=== PATIENT | female | born 1945 | race Caucasian/White ===

== ENCOUNTER → 2016-09-26 14:50 | Outpatient (CLI) | payer MEDICARE, OTHER ==
[2014-11-02 05:55] VITALS: BMI 26.5
[~2016-09-26 14:50] MED LIST: ASPIRIN EC81 M1 PO; CARDIZEM60 MG PO; SYNTHROID88 MCG PO
== END | disposition home or self-care (01) ==
LOC: D.MRI 09-25 13:00
DX: M25.511 Pain in right shoulder (principal)

== ENCOUNTER → 2017-11-02 13:39 | Outpatient (CLI) | payer MEDICARE, OTHER ==
[2014-11-02 05:55] VITALS: BMI 26.5
== END | disposition home or self-care (01) ==
LOC: D.RAD 13:39
DX: M25.512 Pain in left shoulder (principal)

== ENCOUNTER 2017-11-18 08:00 | Outpatient (CLI) | payer MEDICARE, OTHER ==
[~2017-11-18] VITALS: Ht 154.9 cm; Wt 68.0 kg
[~2017-11-18 08:00] MED LIST changes: +BETAPACE 120 M120 MG PO; +FOLIC ACID1 MG PO; +METHOTREXATE2.5 MG PO; +SYNTHROID50 MCG PO; -SYNTHROID88 MCG PO
[2017-11-18 08:25] LABS: HEMATOCRIT 36.5 % (36.0-48.0); HEMOGLOBIN 12.2 g/dL (12-16); MCHC 33.4 g/dL (31.0-37.0); MCV 95.8 fL (80.0-100.0); MEAN PLATELET VOLUME 10.1 fL (7.4-10.4); RBC 3.81 10x6/uL (4.00-5.40); RDW 13.1 % (11.5-14.5); WBC 6.7 10x3/uL (4.8-10.8)
[2017-11-19 08:36] VITALS: Ht 154.9 cm; Wt 68.0 kg
[2017-12-23] MEDS ORDERED: CORDARONE200 MG PO (08:45)
[2017-12-23] MEDS ORDERED: NORVASC5 MG PO (08:45)
== END 2017-11-18 10:10 | disposition home or self-care (01) ==
LOC: D.OPS 08:00 → D.PAN 11-19 10:15 → D.OPS 11-19 10:15 → EDSTATUS 11-19 10:15
PROVIDERS: Anesthesiology
DX: M75.100 Unspecified rotator cuff tear or rupture of unspecified shoulder, not specified as traumatic (principal); Z53.09 Procedure and treatment not carried out because of other contraindication; Z01.812 Encounter for preprocedural laboratory examination

== ENCOUNTER 2017-11-19 12:30 | Emergency (ER) | payer MEDICARE, OTHER ==
[2017-11-19 08:36] VITALS: BMI 28.4
[2017-11-19 14:34] LABS: BASOPHILS 0.7 % (0-2); EOSINOPHILS 1.9 % (0-7); HEMATOCRIT 38.9 % (36.0-48.0); HEMOGLOBIN 13.2 g/dL (12-16); IMMATURE GRANULOCYTES 0.1 % (0-5); LYMPHOCYTES 38.1 % (15-50); MCH 32.5 pg (26.0-34.0); MCHC 33.9 g/dL (31.0-37.0); MCV 95.8 fL (80.0-100.0); MEAN PLATELET VOLUME 10.2 fL (7.4-10.4); MONOCYTES 9.3 % (2-11); NEUTROPHILS 49.9 % (40-80); PLATELET COUNT 246 10x3/uL (130-400); RBC 4.06 10x6/uL (4.00-5.40); RDW 13.4 % (11.5-14.5); WBC 7.3 10x3/uL (4.8-10.8)
[2017-11-19 14:41] LABS: INR 0.94 (0.85-1.17); PROTIME 12.2 SECONDS (11.6-15.0)
[2017-11-19 14:58] LABS: ALBUMIN 3.6 g/dL (3.4-5.0); ALKALINE PHOSPHATASE 84 U/L (46-116); BILIRUBIN - TOTAL 0.34 mg/dL (0.2-1.3); CALC OSMOLALITY 277 mosm/kg (275-300); CARBON DIOXIDE 28.3 mmol/L (21.0-32.0); CHLORIDE - SERUM 104 mmol/L (98-107); CREATININE - SERUM 0.8 mg/dL (0.6-1.3); GLUCOSE 87 mg/dL (74-106); POTASSIUM - SERUM 4.2 mmol/L (3.5-5.1); PROTEIN - SERUM 7.4 g/dL (6.4-8.2); SODIUM 139 mmol/L (136-145); UREA NITROGEN 14 mg/dL (7-18); eGFR NON AFRICAN AMERICAN 74 mL/min (90-120)
[2017-11-19 15:00] LABS: CREATINE KINASE 75 UL (21-215); PRO BNP 3156 pg/mL (0-125); THYROID STIMULATING HORMONE 4.42 uIU/mL (0.36-3.74)
[2017-11-19 15:01] LABS: ALT (SGPT) -164 U/L (10-68); TROPONIN-I < 0.017 ng/mL (0.000-0.060)
[2017-11-19 17:33] LABS: APPEARANCE CLEAR (CLEAR); BILIRUBIN NEGATIVE (NEGATIVE); COLOR YELLOW (YELLOW); GLUCOSE NEGATIVE (NEGATIVE); KETONE NEGATIVE (NEGATIVE); NITRITE NEGATIVE (NEGATIVE); PROTEIN NEGATIVE (NEGATIVE); UROBILINOGEN NORMAL (NORMAL)
[2017-11-19 17:35] LABS: BACTERIA FEW /hpf (NONE SEEN); RED CELLS - URINE 0-5 /hpf (0-5)
[2017-12-23] MEDS ORDERED: NORVASC5 MG PO (08:45)
[2017-12-23] MEDS ORDERED: CORDARONE200 MG PO (08:45)
== END 2017-11-19 18:09 | disposition home or self-care (01) ==
LOC: D.ER 12:30
PROVIDERS: Nurse Practitioner Family
DX: R00.0 Tachycardia, unspecified (principal); R79.89 Other specified abnormal findings of blood chemistry

== ENCOUNTER 2017-12-24 08:40 | Day surgery (SDC) | payer MEDICARE, OTHER ==
[2017-12-23 09:39] LABS: HEMATOCRIT 37.3 % (36.0-48.0); HEMOGLOBIN 12.8 g/dL (12-16); MCH 32.3 pg (26.0-34.0); MCHC 34.3 g/dL (31.0-37.0); MCV 94.2 fL (80.0-100.0); MEAN PLATELET VOLUME 10.4 fL (7.4-10.4); RBC 3.96 10x6/uL (4.00-5.40); RDW 12.8 % (11.5-14.5); WBC 5.2 10x3/uL (4.8-10.8)
[2017-12-23 09:57] LABS: ANION GAP 15.6 mmol/L (8-16); CALCIUM 9.8 mg/dL (8.5-10.1); CARBON DIOXIDE 23.5 mmol/L (21.0-32.0); CREATININE - SERUM 0.9 mg/dL (0.6-1.3); POTASSIUM - SERUM 4.1 mmol/L (3.5-5.1)
[~2017-12-24] VITALS: Ht 154.9 cm; Wt 68.9 kg
--- NOTE | ~2017-12-24 | OP ---
PATIENT NAME: LEANDRA CONTRERAS MEDICAL RECORD: [id number] :41 LOCATION:D.OPS ADMISSION DATE: SURGEON: MIKE SHULTZ MD DATE OF OPERATION: 12/24/2017 PREOPERATIVE DIAGNOSIS: Recurrent rotator cuff tear of the left shoulder. POSTOPERATIVE DIAGNOSIS: Recurrent rotator cuff tear of the left shoulder. PROCEDURE: Arthroscopic rotator cuff repair of the left shoulder. SURGEON: Mike Shultz MD ANESTHESIA: General. INTRAOPERATIVE COMPLICATIONS: None. SUMMARY OF PATHOLOGIC FINDINGS: The patient is a recurrent rotator cuff tear of the supraspinatus tendon consistent with the preoperative MRI. OPERATIVE SUMMARY IN DETAIL: After obtaining the appropriate preoperative orthopedic surgery consent as well as anesthetic consultation, evaluation and clearance, the patient was brought to the operating room and placed on the operating table in supine position. After general laryngeal mask was administered, the patient was placed in a right lateral decubitus position. All pressure points were well-padded to include down leg peroneal pad as well as axillary roll. The patient was held firmly to the operating table using the vacuum pack suction system. Left upper extremity and shoulder were prepped and draped in routine sterile fashion. The arm was held in the Ar[employer] traction boom at 30 degrees of forward flexion, 30 degrees of abduction, 10 pounds of traction laterally. Arthroscopy was established in the glenohumeral joint from the posterior portal. Anterior partial was established through the anterior safe interval. Diagnostic arthroscopy did reveal the above findings. A transrotator cuff portal was created for takedown of fibers of the rotator cuff that did not appear to be robust enough for repair and the supraspinatus footprint was decorticated. Attention was then turned to the subacromial space while in the subacromial space. Further decortication was carried out. The rotator cuff was then reapproximated back to the supraspinatus tendinous footprint using 2 FiberTape mattress sutures held with both a 5.5 SwiveLock from Arthrex and a 4.75 from [employer] posterior repair. Arthroscopic pictures were taken at this point, arthroscopy portals were closed with 4-0 Prolene in a routine fashion. Sterile dressings were applied. The patient was awakened and taken to recovery room in stable condition. All final sponge and needle counts recovered. 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
[~2017-12-24 08:40] MED LIST changes: +CORDARONE200 MG PO; +NORVASC5 MG PO
[2017-12-24 09:21] VITALS: BP 128/74; Ht 154.9 cm; Wt 68.9 kg
[2017-12-24] MEDS ORDERED: ROXICODONE15 MG PO (14:29)
== END 2017-12-24 16:00 | disposition home or self-care (01) ==
LOC: D.OPS 08:40 → D.PAN 10:45 → D.OPS 12:20 → D.PAN 12:20 → D.OPS 13:30 → D.PAN 13:30 → D.OPS 16:00
PROVIDERS: Anesthesiology
DX: M75.112 Incomplete rotator cuff tear or rupture of left shoulder, not specified as traumatic (principal); Z01.812 Encounter for preprocedural laboratory examination

== ENCOUNTER → 2018-05-14 09:35 | Outpatient (CLI) | payer MEDICARE, OTHER ==
[2017-12-24 09:21] VITALS: BMI 28.7
[~2018-05-14 09:35] MED LIST changes: +ROXICODONE15 MG PO
[2018-05-14 10:25] LABS: HEMATOCRIT 37.7 % (36.0-48.0); MCH 32.7 pg (26.0-34.0); MCHC 34.5 g/dL (31.0-37.0); MCV 94.7 fL (80.0-100.0); MEAN PLATELET VOLUME 9.7 fL (7.4-10.4); NEUTROPHILS 59.4 % (40-80); PLATELET COUNT 208 10x3/uL (130-400); RBC 3.98 10x6/uL (4.00-5.40); WBC 5.6 10x3/uL (4.8-10.8)
[2018-05-14 10:43] LABS: % SATURATION 26 % (15-55); IRON 75 ug/dl (35-150); TOTAL IRON BIND CAPACITY 278 ug/dl (260-445); UNSAT IRON BIND CAPACITY 203 ug/dl (150-375)
[2018-05-14 10:54] LABS: APTT 26.6 SECONDS (22.8-39.4); INR 0.91 (0.85-1.17); PROTIME 11.9 SECONDS (11.6-15.0)
[2018-05-14 10:55] LABS: ALBUMIN 3.7 g/dL (3.4-5.0); ANION GAP 11.4 mmol/L (8-16); BILIRUBIN - DIRECT 0.08 mg/dL (0.00-0.30); BILIRUBIN - INDIRECT 0.19 mg/dL (0.00-1.00); BILIRUBIN - TOTAL 0.27 mg/dL (0.2-1.3); CALCIUM 9.5 mg/dL (8.5-10.1); CARBON DIOXIDE 27.1 mmol/L (21.0-32.0); POTASSIUM - SERUM 4.5 mmol/L (3.5-5.1); PROTEIN - SERUM 7.4 g/dL (6.4-8.2)
[2018-05-15 08:17] LABS: HAPTOGLOBIN 154 mg/dL (34-200)
[2018-05-17 09:08] LABS: ANA REFLEX - DIRECT Negative (Negative)
[2018-05-17 16:13] LABS: MITOCHONDRIAL ANTIBODY 9.7 Units (0.0-20.0); SMOOTH MUSCLE ABS (ACTIN) 9 Units (0-19)
== END | disposition home or self-care (01) ==
LOC: D.LAB 09:35
PROVIDERS: Internal Medicine Gastroenterology
DX: K76.0 Fatty (change of) liver, not elsewhere classified (principal); R79.89 Other specified abnormal findings of blood chemistry; R93.8 Abnormal findings on diagnostic imaging of other specified body structures

== ENCOUNTER → 2018-10-25 09:35 | Outpatient (CLI) | payer MEDICARE, OTHER ==
[2017-12-24 09:21] VITALS: BMI 28.7
[2018-10-25 10:36] LABS: ALBUMIN 3.5 g/dL (3.4-5.0); BILIRUBIN - DIRECT 0.09 mg/dL (0.00-0.30); BILIRUBIN - INDIRECT 0.31 mg/dL (0.00-1.00); BILIRUBIN - TOTAL 0.4 mg/dL (0.2-1.3); PROTEIN - SERUM 7.1 g/dL (6.4-8.2)
== END | disposition home or self-care (01) ==
LOC: D.US 10-18 09:00 → D.LAB 10-18 09:00 → D.US 09:35
PROVIDERS: Internal Medicine Gastroenterology
DX: K76.0 Fatty (change of) liver, not elsewhere classified (principal); R94.5 Abnormal results of liver function studies

== ENCOUNTER → 2019-05-17 08:53 | Outpatient (CLI) | payer MEDICARE, OTHER ==
[2017-12-24 09:21] VITALS: BMI 28.7
[2019-05-17 09:53] LABS: ALBUMIN 3.6 g/dL (3.4-5.0); BILIRUBIN - DIRECT 0.07 mg/dL (0.00-0.30); BILIRUBIN - INDIRECT 0.23 mg/dL (0.00-1.00); BILIRUBIN - TOTAL 0.3 mg/dL (0.2-1.3); PROTEIN - SERUM 7.2 g/dL (6.4-8.2)
== END | disposition home or self-care (01) ==
LOC: D.US 03-09 08:00 → D.LAB 03-09 08:00
PROVIDERS: ATTEND Internal Medicine Gastroenterology
DX: K76.0 Fatty (change of) liver, not elsewhere classified (principal)